=== PATIENT | male | born 1980 | race Caucasian/White ===

== ENCOUNTER 2019-07-17 07:04 | Outpatient (CLI) | payer OTHER, SELFPAY ==
--- NOTE | 2019-07-17 07:30 | CT_ITS ---
WS: [id number] CT CHEST, ABDOMEN AND PELVIS WITH AND WITHOUT CONTRAST. HISTORY: L RENAL MASS TECHNIQUE: Noncontrast CT abdomen and pelvis. Contiguous 5 mm axial imaging performed through the [address], abdomen and pelvis with IV contrast, oral contrast has been provided. Coronal and sagittal reform ats chest. Coronal and sagittal reformats through the abdomen and pelvis. All CT scans at [facility] use at least one of these dose optimization techniques: automated exposure control; mA an d/or kV adjustment per patient size (includes targeted exams where dose is matched to clinical indica tion); or iterative reconstruction. CONTRAST: Omnipaque 300; 95 mL IV. DLP: 3172.40 mGy-cm. COMPARISON: 05/07/[address]: Lungs are well aerated and clear. No pulmonary nodule or mass. Thoracic aorta and pulmonary artery size is normal. No pericardial or pleural effusion. Normal heart. No mediastinal or hilar oswaldo nopathy. There are several small axillary lymph nodes which are stable. Abdomen CT: Hepatic steatosis with no bile duct dilatation. Normal gallbladder, spleen, pancreas and adrenal glands. RIGHT kidney is normal size with no stones or obstruction. Cortical scar in the upper pole. Previously described LEFT renal mass has been removed. There is a scar and postoperative changes in t he mid to lower LEFT kidney. Small peripheral calcifications in the cortex at the scar site. No recur rent mass or abnormal enhancement. There is a large nonobstructing irregular calcification in the upp er pole of the LEFT kidney measuring 12 mm in maximum diameter. LEFT renal vein is patent. No adjacen t adenopathy or fluid. No retroperitoneal lymph nodes of any concerns. No ascites. Pelvic CT: Well-distended urinary bladder. No adenopathy or free fluid in the pelvis. Visualized GI t ract is negative. No obstruction. The appendix is normal. No osteoblastic or osteolytic bone disease. Again noted is a calcific or osseous density posterior to the sternal manubrial junction. May be from prior trauma or congenital. No osteoblastic or osteolyti c bone disease. Mild RIGHT convex curvature of the thoracic spine. CT/CT chest abd pel wo/w con IMPRESSION: 1. Status post surgical removal solid mass LEFT kidney. Postoperative changes of scarring are now present. No recurrent mass identified. 2. Irregular 12 mm calcification upper pole LEFT kidney is nonobstructing. 3. No osteoblastic or osteolytic bone disease or adenopathy. 4. Mild hepatic steatosis.
[2019-07-17] MEDS: iohexol 300 mg/mL 50 mL Btl PO (07:44)
[2019-07-17 08:12] LABS: Alanine Aminotransferase 51 U/L (0-41); Albumin Level 4.5 g/dL (3.5-5.2); Alkaline Phosphatase 41 IU/L (40-130); Anion Gap 13.8 (5-19); Aspartate Amino Transferase 26 U/L (0-40); Blood Urea Nitrogen 10 mg/dL (6-20); Calcium 9.4 mg/dL (8.5-10.5); Carbon Dioxide 28 mmol/L (22-29); Chloride 102 mmol/L (98-107); Globulin 2.7 g/dL (1.3-4.6); Glomerular Filtration Rate 83.6 mL/min (90-130); Glucose 112 mg/dL (65-115); Potassium 4.8 mmol/L (3.5-5.1); Sodium 139 mmol/L (136-145); Total Bilirubin 0.7 mg/dL (0.15-1.2); Total Protein 7.2 g/dL (6.6-8.7)
[2019-07-17] MEDS: iohexol 300 mg/mL 100 mL Btl IV (08:28)
== END 2019-07-17 07:05 | disposition home or self-care (01) ==
LOC: CT 07:26
PROVIDERS: Visit Provider Urology
DX: C64.9 Malignant neoplasm of unspecified kidney, except renal pelvis (principal); N40.1 Benign prostatic hyperplasia with lower urinary tract symptoms; N20.0 Calculus of kidney; N28.89 Other specified disorders of kidney and ureter; K76.0 Fatty (change of) liver, not elsewhere classified
CPT/HCPCS: 36415; 71260; 74178; 80053; 81001; 87086

== ENCOUNTER 2019-07-28 08:20 | Emergency (ER) | payer OTHER, SELFPAY ==
--- NOTE | 2019-07-28 08:30 | XRR_ITS ---
PROCEDURE INFORMATION: Exam: XR Chest, 2 Views Exam date and time: 07/28/2019 9:21 AM Age: 39 years old Clinical indication: Pleuordynia; Pain with breathing. TECHNIQUE: Imaging protocol: XR of the chest Views: 2 views. COMPARISON: CR Chest 2 views* [id number] 06/19/2017 9:07 PM FINDINGS: Lungs: No focal peripheral lung consolidation, air bronchogram formation, or silhouette sign. Pleural space: No pleural effusion or pneumothorax. Heart/Mediastinum: The cardiac silhouette is not enlarged. The mediastinal contours are normal. Bones/joints: No acute osseous abnormality. Other findings: There is a left epicardial fat pad. XR/XR chest 2V* [id number] IMPRESSION: No pneumonia.
[2019-07-28 08:36] VITALS: BP 147/94; PULSE 85; RESP 18; TEMP 36.6; O2SAT 97; BMI 34.8
--- NOTE | 2019-07-28 08:57 | ED_ITS ---
Entered by Willow Lamb, acting as scribe for Fuad Prieto DO Jul 28, 2019 08:20 HPI - General Adult General: Chief complaint: General Medical Stated complaint: pain in loft side when breathes Time Seen by Provider: 07/28/19 08:57 Source: patient and family Mode of arrival: ambulatory Limitations: no limitations History of Present Illness: HPI narrative: 39 yo male presents with L flank and L abdomen pain. pt states this started just [employer]. pt was working when the pain started, pain radiates to lower back. pain described as a sharp pain. pt denies any other symptoms at this time. MD complaint: L back and abdomen pain Onset (ago): hour(s) (just [employer] of [employer]) Location: back and abdomen Radiation: non-radiation Severity: mild Quality: sharp Pain Consistency: constant Relieving factors: none Exacerbating factors: movement and other (deep breaths) Associated symptoms: Reports other (back pain); Deny chest pain, dyspnea, malaise or rash Treatments prior to arrival: none Review of Systems General: Reports: 10 or more systems reviewed and unremarkable except in HPI and below Const: Denies: fever, chills, body aches, change in appetite, fatigue or malaise ENMT: Denies: throat pain, ear pain, nasal discharge or nasal congestion Card: Denies: chest pain, edema, shortness of breath on exertion or shortness of breath when lying down Resp: Denies: shortness of breath, productive cough or non-productive cough GI: Reports: abdominal pain : Reports: flank pain (L side) Musc: Reports: back pain Skin/Breast: Denies: rash or itching PFS ED PFSH: Medical History (Updated 07/28/19 @ 11:52 by Fuad Prieto DO) BPH loc w urin obs/LUTS Renal cell cancer Staghorn renal calculus Surgical History (Updated 07/28/19 @ 09:06 by Willow Lamb) H/O facial fracture repair reconstruction of face due to trauma Family History (Updated 07/17/19 @ 10:28 by Sahara Marques LPN) Mother Diabetes Father Lung disease Sleep apnea Social History (Updated 07/17/19 @ 10:28 by Sahara Marques LPN) Smoking and tobacco status: former smoker Alcohol intake: current Alcohol intake frequency: holidays/special occasions only Marital status: Current occupational status: employed History of recent travel: No Physical Exam Const: COMMON NORMALS: no apparent distress GENERAL APPEARANCE: cooperative and comfortable ORIENTATION/CONSCIOUSNESS: Yes awake, Yes oriented to person, Yes oriented to place and Yes oriented to time HENMT: COMMON NORMALS: normocephalic, head/scalp atraumatic, hearing grossly normal bilaterally, external ears normal, EAC's normal, TM's normal bilaterally, nasal mucous membranes and turbinates normal, moist oral mucous membranes and oropharynx normal HEAD & SCALP: normocephalic and atraumatic NOSE: nasal mucous membranes and turbinates normal EXTERNAL EAR: Yes external ears normal EXTERNAL AUDITORY CANAL: EAC's normal TYMPANIC MEMBRANE: TM's normal bilaterally Eye: COMMON NORMALS: PERRL, EOMs intact bilaterally, conjunctivae normal and no scleral icterus CONJUNCTIVA: Yes conjunctivae normal PUPIL: Yes PERRL Neck/C-Spine: COMMON NORMALS: full ROM, no lymphadenopathy, supple and no JVD Lymph: LYMPHATIC: no lymphadenopathy noted and no lymphedema noted Resp: COMMON NORMALS: normal respiratory effort, no retractions, no use of accessory muscles and clear to auscultation bilaterally AUSCULTATION: clear to auscultation bilaterally Cardio: COMMON NORMALS: no JVD, regular rate, regular rhythm and no murmurs RATE: regular rate RHYTHM: regular rhythm GI: COMMON NORMALS: soft to palpation and no hepatosplenomegaly AUSCULTATION: Yes normoactive bowel sounds PALPATION: Yes soft, No tender, No guarding and Yes no hepatosplenomegaly Back/Pelvis: OTHER: Pain is easily reproducible with light palpation along the lateral aspect of the lower ribs on the left. No percussion is even needed given there is other findings I think this is all musculoskeletal we will treat the patient with anti-inflammatories and pain medications give him 2 days off work follow-up with his primary care doctor if persists or worsens Extremity: COMMON NORMALS: normal to inspection, normal capillary refill, no clubbing, cyanosis or edema, no calf tenderness and no pedal edema Neuro: SENSORIUM/ORIENTATION: Yes oriented to person, Yes oriented to place and Yes oriented to time Skin: COMMON NORMALS: no rashes or lesions noted GENERAL SKIN EXAM: no rashes or lesions noted Course Vital Signs: Vital signs: Vital Signs Temperature 97.8 F 07/28/19 08:36 Pulse Rate 75 07/28/19 12:07 Respiratory Rate 14 07/28/19 12:07 Blood Pressure 145/85 07/28/19 12:07 Pulse Oximetry 99 07/28/19 12:07 [facility] - General Adult Lab Data: Labs: Lab Results 07/28/19 07/28/19 07/28/19 Range/Units 09:02 09:04 09:04 WBC 5.8 (4.0-10.0) 10^3/ uL RBC 4.98 (4.1-5.3) 10^6/u L Hgb 14.7 (11.7-16.6) g/dL Hct 45.5 (42.0-52.0) % MCV 91.4 (80-94) fL MCH 29.5 (28.0-34.0) pg MCHC 32.3 (30.0-36.0) g/dL RDW 12.3 (12.1-15.1) % Plt Count 394 (130-400) 10^3/c mm MPV 9.9 (7.4-10.4) fL Neut % (Auto) 50.7 % Lymph % (Auto) 34.1 % [place] % (Auto) 9.9 % Eos % (Auto) 4.1 % Baso % (Auto) 0.9 % Neut # (Auto) 3.0 (1.8-7.7) 10^3/u L Lymph # (Auto) 2.0 (0.8-4.8) 10^3/u L [place] # (Auto) 0.6 (0.2-0.9) 10^3/u L Eos # (Auto) 0.2 (0.0-0.8) 10^3/u L Baso # (Auto) 0.1 (0.0-0.1) 10^3/u L Nucleated RBC % (a uto) 0 % Nucleated RBCs # 0.0 /100WBC D-Dimer <= 0.27 (0-0.59) ug/mIFE U Sodium (136-145) mmol/L Potassium (3.5-5.1) mmol/L Chloride (98-107) mmol/L Carbon Dioxide (22-29) mmol/L Anion Gap (5-19) BUN (6-20) mg/dL Creatinine (0.7-1.2) mg/dL GFR Calculation (90-130) mL/min Glucose (65-115) mg/dL Calcium (8.5-10.5) mg/dL Total Bilirubin (0.15-1.2) mg/dL AST (0-40) U/L ALT (0-41) U/L Alkaline Phosphata se (40-130) IU/L Total Protein (6.6-8.7) g/dL Albumin (3.5-5.2) g/dL Globulin (1.3-4.6) g/dL Lipase (13-60) U/L Urine Color Yellow (Yellow) Urine Appearance Clear (CLEAR) Urine pH 5.0 (5-7) Ur Specific Gravit y 1.025 (1.005-1.030) Urine Protein Neg (Negative) Urine Glucose (UA) 2+ (Normal) Urine Ketones Negative (Negative) Urine Blood Neg (Negative) Urine Nitrate Negative (Negative) Urine Bilirubin Neg (NEGATIVE) Urine Urobilinogen Norm (Negative) mg/dL Ur Leukocyte Amanda ase Negative (Negative) 07/28/19 07/28/19 Range/Units 09:04 09:04 WBC (4.0-10.0) 10^3/ uL RBC (4.1-5.3) 10^6/u L Hgb (11.7-16.6) g/dL Hct (42.0-52.0) % MCV (80-94) fL MCH (28.0-34.0) pg MCHC (30.0-36.0) g/dL RDW (12.1-15.1) % Plt Count (130-400) 10^3/c mm MPV (7.4-10.4) fL Neut % (Auto) % Lymph % (Auto) % [place] % (Auto) % Eos % (Auto) % Baso % (Auto) % Neut # (Auto) (1.8-7.7) 10^3/u L Lymph # (Auto) (0.8-4.8) 10^3/u L [place] # (Auto) (0.2-0.9) 10^3/u L Eos # (Auto) (0.0-0.8) 10^3/u L Baso # (Auto) (0.0-0.1) 10^3/u L Nucleated RBC % (a uto) % Nucleated RBCs # /100WBC D-Dimer (0-0.59) ug/mIFE U Sodium 141 (136-145) mmol/L Potassium 4.3 (3.5-5.1) mmol/L Chloride 102 (98-107) mmol/L Carbon Dioxide 27 (22-29) mmol/L Anion Gap 16.3 (5-19) BUN 16 (6-20) mg/dL Creatinine 0.9 (0.7-1.2) mg/dL GFR Calculation 94.4 (90-130) mL/min Glucose 113 (65-115) mg/dL Calcium 9.6 (8.5-10.5) mg/dL Total Bilirubin 0.7 (0.15-1.2) mg/dL AST 24 (0-40) U/L ALT 64 H (0-41) U/L Alkaline Phosphata se 48 (40-130) IU/L Total Protein 7.4 (6.6-8.7) g/dL Albumin 4.6 (3.5-5.2) g/dL Globulin 2.8 (1.3-4.6) g/dL Lipase 23 (13-60) U/L Urine Color (Yellow) Urine Appearance (CLEAR) Urine pH (5-7) Ur Specific Gravit y (1.005-1.030) Urine Protein (Negative) Urine Glucose (UA) (Normal) Urine Ketones (Negative) Urine Blood (Negative) Urine Nitrate (Negative) Urine Bilirubin (NEGATIVE) Urine Urobilinogen (Negative) mg/dL Ur Leukocyte Amanda ase (Negative) Imaging Data^: CT Abd/Pel: Radiologist's impression: [address] [address] [address] Scan Report Signed Patient: Tomer Daniels #: [id number] : 1980Acct#:[id number] Age/Sex: 39 / MADM Date: 07/28/19 Loc: ERRoom/Bed: Attending Dr: Ordering Provider/Ordering MD: Fuad Prieto DO Date of Service: 07/28/19 Procedure(s): CT abdomen pelvis w con* [id number] Accession Number(s): [id number] Report Number: [id number] PROCEDURE INFORMATION: Exam: CT Abdomen And Pelvis With Contrast Exam date and time: 07/28/2019 10:17 AM Age: 39 years old Clinical indication: Abdominal pain; Localized; Prior surgery; Patient HX: Sudden onset of left abd/flank pain this a. M. HX of left renal mass surgically removed. ; Additional info: Abd pain TECHNIQUE: Imaging protocol: Computed tomography of the abdomen and pelvis with intravenous contrast. Total DLP: 1579.56 mGy-cm Radiation optimization: All CT scans at this facility use at least one of these dose optimization techniques: automated exposure control; mA and/or kV adjustment per patient size (includes targeted exams where dose is matched to clinical indication); or iterative reconstruction. Contrast material: OMNI 300; Contrast volume: 95 ml; Contrast route: 20G; COMPARISON: CT chest abd pel wo/w con 07/17/2019 8:41 AM FINDINGS: Lungs: No acute basilar lung consolidation. Liver: There is fatty change involving the liver parenchyma. Gallbladder and bile ducts: No calcified gallstones, gallbladder wall thickening, or pericholecystic inflammation. No biliary ductal dilation. Pancreas: No pancreatic mass. No peripancreatic inflammation. No pancreatic ductal dilation. Spleen: The spleen is homogeneous and is not enlarged. Adrenals: No adrenal mass. Kidneys and ureters: Prior partial left nephrectomy. Postsurgical changes in the perirenal space. No hemorrhage. There is nonobstructing calculus in the superior pole collecting system of the left kidney. No hydronephrosis or hydroureter on either side. No ureteral calculus. Stomach and bowel: No bowel obstruction, colitis or diverticulitis. Appendix: No evidence of appendicitis. Intraperitoneal space: No ascites or pneumoperitoneum. Vasculature: No abdominal aortic aneurysm. No iliac or common femoral artery aneurysm. The mesenteric arteries are patent. The mesenteric, portal, and hepatic veins are patent. Lymph nodes: No pathologically enlarged lymph nodes. Bladder: No urinary bladder calculus or wall thickening. Reproductive: Unremarkable as visualized. Bones/joints: No acute osseous abnormality. Soft tissues: Unremarkable. CT/CT abdomen pelvis w con* [id number] IMPRESSION: Left nephrolithiasis without urinary tract obstruction. Radiation Dose CTDIVOL = (mGy): DLP = 1579.56 (mGy-cm) Dictated By:Deon Rodney Signed By:Donnie Rodney Date/Time:07/28/19 1121 CXR: Radiologist's impression: [facility] [address] [place] [address] XRay Report Signed Patient: Tomer Daniels #: [id number] : 1980Acct#:[id number] Age/Sex: 39 / MADM Date: 07/28/19 Loc: ERRoom/Bed: Attending Dr: Ordering Provider/Ordering MD: Tomer Sloan NP Date of Service: 07/28/19 Procedure(s): XR chest 2V* [id number] Accession Number(s): [id number] Report Number: [id number] PROCEDURE INFORMATION: Exam: XR Chest, 2 Views Exam date and time: 07/28/2019 9:21 AM Age: 39 years old Clinical indication: Pleuordynia; Pain with breathing. TECHNIQUE: Imaging protocol: XR of the chest Views: 2 views. COMPARISON: CR Chest 2 views* [id number] 06/19/2017 9:07 PM FINDINGS: Lungs: No focal peripheral lung consolidation, air bronchogram formation, or silhouette sign. Pleural space: No pleural effusion or pneumothorax. Heart/Mediastinum: The cardiac silhouette is not enlarged. The mediastinal contours are normal. Bones/joints: No acute osseous abnormality. Other findings: There is a left epicardial fat pad. XR/XR chest 2V* [id number] IMPRESSION: No pneumonia. Dictated By:Deon Rodney Signed By:Donnie Rodney Date/Time:07/28/19 1018 Discharge Plan Discharge Patient Disposition: Home, Self-Care Clinical Impression: Strain of thoracic back region Condition: Stable Prescriptions: [place] 5-325 mg tablet 1 tab PO Q6H PRN (Reason: pain) Qty: 20 RF: 0 cyclobenzaprine 10 mg tablet 10 mg PO TID PRN (Reason: muscle spasm) Qty: 20 RF: 0 No Action tamsulosin 0.4 mg capsule 0.4 mg PO DAILY RF: 0 Discharge Orders: Discharge Order (Routine); Ordered 07/28/19 Ordered By: Fuad Prieto Referrals: Michael Suggs NP [Primary Care Provider] - Discharge Diet: Usual diet Discharge Activity: Increase activity as tolerated Activity Restrictions/Additional Instructions: Return if you have worsening problems Stand Alone Forms: Work/School Release Discharge Date/Time: 07/28/19 12:08 Coding Level of Care Code ED Manager Content for Chg Fwd The documentation recorded by the Adonis hinson Bridget Annette, accurately reflects the service I personally performed and the decisions made by , Fuad Prieto, Jul 28, 2019 08:20
[2019-07-28 09:11] LABS: Basophils # 0.1 10^3/uL (0.0-0.1); Basophils % 0.9 %; Eosinophils # 0.2 10^3/uL (0.0-0.8); Eosinophils % 4.1 %; Hematocrit 45.5 % (42.0-52.0); Hemoglobin 14.7 g/dL (11.7-16.6); Lymphocytes % 34.1 %; Mean Corpuscular HGB Conc 32.3 g/dL (30.0-36.0); Mean Corpuscular Hemoglobin 29.5 pg (28.0-34.0); Mean Corpuscular Volume 91.4 fL (80-94); Mean Platelet Volume 9.9 fL (7.4-10.4); Monocytes # 0.6 10^3/uL (0.2-0.9); Monocytes % 9.9 %; Neutrophils % 50.7 %; Nucleated Red Blood Cells % 0 %; Platelet Count 394 10^3/cmm (130-400); Red Blood Count 4.98 10^6/uL (4.1-5.3); Red Cell Distribution Width 12.3 % (12.1-15.1); White Blood Count 5.8 10^3/uL (4.0-10.0)
--- NOTE | 2019-07-28 09:15 | PC.NURSE ---
Patient to x-ray via wheelchair
[2019-07-28 09:21] LABS: Add Urine Microscopic? NO
[2019-07-28 09:25] LABS: D Dimer <= 0.27 ug/mIFEU (0-0.59)
[2019-07-28 09:33] LABS: Urine Appearance Clear (CLEAR); Urine Color Yellow (Yellow)
[2019-07-28 09:34] LABS: Bilirubin Urine Neg (NEGATIVE); Blood Urine Neg (Negative); Glucose Urine UA 2+ (Normal); Ketones Urine Negative (Negative); Leukocyte Esterase Urine Negative (Negative); Nitrate Urine Negative (Negative); Protein Urine Neg (Negative); Specific Gravity, Urine 1.025 (1.005-1.030); Urobilinogen Urine Norm (Negative)
[2019-07-28 09:34] LABS: Alanine Aminotransferase 64 U/L (0-41); Albumin Level 4.6 g/dL (3.5-5.2); Alkaline Phosphatase 48 IU/L (40-130); Anion Gap 16.3 (5-19); Aspartate Amino Transferase 24 U/L (0-40); Blood Urea Nitrogen 16 mg/dL (6-20); Calcium 9.6 mg/dL (8.5-10.5); Carbon Dioxide 27 mmol/L (22-29); Chloride 102 mmol/L (98-107); Globulin 2.8 g/dL (1.3-4.6); Glomerular Filtration Rate 94.4 mL/min (90-130); Glucose 113 mg/dL (65-115); Potassium 4.3 mmol/L (3.5-5.1); Sodium 141 mmol/L (136-145); Total Bilirubin 0.7 mg/dL (0.15-1.2); Total Protein 7.4 g/dL (6.6-8.7)
[2019-07-28 09:40] LABS: Lipase 23 U/L (13-60)
--- NOTE | 2019-07-28 10:14 | CTR_ITS ---
PROCEDURE INFORMATION: Exam: CT Abdomen And Pelvis With Contrast Exam date and time: 07/28/2019 10:17 AM Age: 39 years old Clinical indication: Abdominal pain; Localized; Prior surgery; Patient HX: Sudden onset of left abd/flank pain this a. M. HX of left renal mass surgically removed. ; Additional info: Abd pain TECHNIQUE: Imaging protocol: Computed tomography of the abdomen and pelvis with intravenous contrast. Total DLP: 1579.56 mGy-cm Radiation optimization: All CT scans at this facility use at least one of these dose optimization techniques: automated exposure control; mA and/or kV adjustment per patient size (includes targeted exams where dose is matched to clinical indication); or iterative reconstruction. Contrast material: OMNI 300; Contrast volume: 95 ml; Contrast route: 20G; COMPARISON: CT chest abd pel wo/w con 07/17/2019 8:41 AM FINDINGS: Lungs: No acute basilar lung consolidation. Liver: There is fatty change involving the liver parenchyma. Gallbladder and bile ducts: No calcified gallstones, gallbladder wall thickening, or pericholecystic inflammation. No biliary ductal dilation. Pancreas: No pancreatic mass. No peripancreatic inflammation. No pancreatic ductal dilation. Spleen: The spleen is homogeneous and is not enlarged. Adrenals: No adrenal mass. Kidneys and ureters: Prior partial left nephrectomy. Postsurgical changes in the perirenal space. No hemorrhage. There is nonobstructing calculus in the superior pole collecting system of the left kidney. No hydronephrosis or hydroureter on either side. No ureteral calculus. Stomach and bowel: No bowel obstruction, colitis or diverticulitis. Appendix: No evidence of appendicitis. Intraperitoneal space: No ascites or pneumoperitoneum. Vasculature: No abdominal aortic aneurysm. No iliac or common femoral artery aneurysm. The mesenteric arteries are patent. The mesenteric, portal, and hepatic veins are patent. Lymph nodes: No pathologically enlarged lymph nodes. Bladder: No urinary bladder calculus or wall thickening. Reproductive: Unremarkable as visualized. Bones/joints: No acute osseous abnormality. Soft tissues: Unremarkable. CT/CT abdomen pelvis w con* [id number] IMPRESSION: Left nephrolithiasis without urinary tract obstruction. Radiation Dose CTDIVOL = (mGy): DLP = 1579.56 (mGy-cm)
--- NOTE | 2019-07-28 11:00 | PC.NURSE ---
Patient to CT via stretcher
[2019-07-28] MEDS: iohexol 300 mg/mL 100 mL Btl IV (11:03)
--- NOTE | 2019-07-28 11:07 | PC.NURSE ---
Returned to room from CT
[2019-07-28 11:39] VITALS: BP 143/107; PULSE 70; O2SAT 100
[2019-07-28 12:07] VITALS: BP 145/85; PULSE 75; RESP 14; O2SAT 99
== END 2019-07-28 12:08 | disposition home or self-care (01) ==
PROVIDERS: Nurse Practitioner Family; Emergency Provider Family Medicine; PCP Nurse Practitioner Family
DX: S29.012A Strain of muscle and tendon of back wall of thorax, initial encounter (principal); Z87.891 Personal history of nicotine dependence; X58.XXXA Exposure to other specified factors, initial encounter
CPT/HCPCS: 36415; 71046; 74177; 80053; 81003; 83690; 85025; 85378; 99281; 99283; A9270; Q9967

== ENCOUNTER 2019-08-04 04:08 | Emergency (ER) | payer OTHER, SELFPAY ==
[2019-08-04 04:22] VITALS: BP 124/97; PULSE 82; RESP 18; TEMP 36.6; O2SAT 97; BMI 34.8
[2019-08-04 04:46] LABS: Rapid Strep A Test Negative (Negative)
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
--- NOTE | 2019-08-04 05:10 | CTR_ITS ---
PROCEDURE INFORMATION: Exam: CT Neck With Contrast Exam date and time: 08/04/2019 5:42 AM Age: 39 years old Clinical indication: Throat pain; Prior surgery; Surgery type: Facial reconstruction; Patient HX: Severe sore throat with hoarseness starting yesterday TECHNIQUE: Imaging protocol: Computed tomography images of the neck with intravenous contrast. Total DLP: 789.09 mGy-cm Radiation optimization: All CT scans at this facility use at least one of these dose optimization techniques: automated exposure control; mA and/or kV adjustment per patient size (includes targeted exams where dose is matched to clinical indication); or iterative reconstruction. Contrast material: OMNI 300; Contrast volume: 95 ml; Contrast route: 20G; COMPARISON: No relevant prior studies available. FINDINGS: Brain: The supervisory cbp officer space is normal. Visualized portions of the brain and orbits are normal. Nasopharynx: fossa of Rosenmuller is normal. Oropharynx: parapharyngeal space normal. Tonsillar tissues appear grossly normal. Hypopharynx: Piriform sinus is unremarkable. Larynx: the epiglottis, preepiglottic fat and the aryepiglottic folds are normal. The true cords appear normal. Thickening of the pharyngeal mucosal space on the right with mild soft tissue prominence in the right vallecula and thickening of the right aryepiglottic fold. Narrowing of the laryngeal vestibule. Please correlate. Retropharyngeal space: Unremarkable. Submandibular/Parotid glands: submental and submandibular regions are normal. the carotid and parotid spaces are normal. Thyroid: the thyroid gland, the thoracic inlet, the posterior triangles are normal. Lymph nodes: Numerous nonspecific lymph nodes. Trachea: Visualized trachea is unremarkable. Lungs: The lung apices are normal. Bones/joints: No acute osseous abnormality. Prior surgical fixation of the mandible body of the mandible on the right in the ramus of the mandible on the left. Space Prior surgical fixation of the right and left maxilla. Soft tissues: Unremarkable. No significant soft tissue swelling. Other findings: precervical space is normal. CT/CT neck w con* [id number] IMPRESSION: 1. Prior surgical fixation of the mandible body of the mandible on the right in the ramus of the mandible on the left. Space Prior surgical fixation of the right and left maxilla. 2. Tonsillar tissues appear grossly normal. 3. Thickening of the pharyngeal mucosal space on the right with mild soft tissue prominence in the right vallecula and thickening of the right aryepiglottic fold. Narrowing of the laryngeal vestibule. Please correlate. Consider endoscopy if indicated. Radiation Dose CTDIVOL = (mGy): DLP = 789.09 (mGy-cm)
[2019-08-04] MEDS: cetacaine Spray 5 gm Can 1 SPRAY TOPICAL (05:26)
[2019-08-04 05:36] VITALS: RESP 14; O2SAT 95
[2019-08-04] MEDS: morphine 4 mg/mL SDV 1 mL IVP (05:36)
[2019-08-04] MEDS: ketorolac 30 mg/mL INJ IVP (05:36)
[2019-08-04] MEDS: ondansetron 2 mg/ML SDV 2 mL 4 MG IVP ×2 (05:37→06:16)
[2019-08-04 05:41] VITALS: BP 139/106; PULSE 91; RESP 14; O2SAT 96
[2019-08-04] MEDS: iohexol 300 mg/mL 100 mL Btl IV (05:43)
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
[2019-08-04 05:56] LABS: Basophils # 0.1 10^3/uL (0.0-0.1); Basophils % 0.7 %; Eosinophils # 0.3 10^3/uL (0.0-0.8); Hematocrit 46.8 % (42.0-52.0); Lymphocytes % 24.6 %; Mean Corpuscular HGB Conc 32.1 g/dL (30.0-36.0); Mean Corpuscular Hemoglobin 30.4 pg (28.0-34.0); Mean Corpuscular Volume 94.9 fL (80-94); Mean Platelet Volume 10.3 fL (7.4-10.4); Monocytes # 0.9 10^3/uL (0.2-0.9); Monocytes % 10.3 %; Nucleated Red Blood Cells % 0 %; Platelet Count 370 10^3/cmm (130-400); Red Blood Count 4.93 10^6/uL (4.1-5.3); Red Cell Distribution Width 12.3 % (12.1-15.1); White Blood Count 8.3 10^3/uL (4.0-10.0)
[2019-08-04 06:18] VITALS: BP 135/95; PULSE 86; RESP 14; O2SAT 98
--- NOTE | 2019-08-04 06:19 | PC.NURSE ---
patient to CT
[2019-08-04 06:27] LABS: Alanine Aminotransferase 64 U/L (0-41); Albumin Level 4.6 g/dL (3.5-5.2); Alkaline Phosphatase 53 IU/L (40-130); Aspartate Amino Transferase 34 U/L (0-40); Blood Urea Nitrogen 15 mg/dL (6-20); C Reactive Protein 11.7 mg/L (0.0-4.9); Calcium 9.5 mg/dL (8.5-10.5); Carbon Dioxide 27 mmol/L (22-29); Chloride 100 mmol/L (98-107); Globulin 2.9 g/dL (1.3-4.6); Glomerular Filtration Rate 94.4 mL/min (90-130); Glucose 114 mg/dL (65-115); Sodium 139 mmol/L (136-145); Total Bilirubin 1.2 mg/dL (0.15-1.2); Total Protein 7.5 g/dL (6.6-8.7)
[2019-08-04] MEDS: clindamycin 900 MG/50 ML PREMIX 100 MG IV (08:48)
--- NOTE | 2019-08-04 08:56 | DCPLANNER ---
Addendum entered by Brenda Skaggs 08/04/19 10:06: Patient has a follow up appointment scheduled for Monday, August 05, 2019 at 2:[address] Owens. Original Note: production line manager was asked to schedule a follow up appointment for patient with Dr. Owens, ENT. production line manager called the ENT clinic, spoke with Nicolas, gave clinic patients information. production line manager was told that patients information will be printed and reviewed. Clinic will call dependency case manager and patient with appointment information.
[2019-08-04 10:36] VITALS: BP 135/78; PULSE 81; RESP 17; O2SAT 96
--- NOTE | 2019-08-12 14:54 | DCPLANNER ---
Patient did attend appointment scheduled for 08.05.19 with ENT.
== END 2019-08-04 10:38 | disposition home or self-care (01) ==
PROVIDERS: Emergency Medicine; Emergency Provider Emergency Medicine; PCP Nurse Practitioner Family
DX: J02.9 Acute pharyngitis, unspecified (principal); R09.82 Postnasal drip; R49.0 Dysphonia; Z87.891 Personal history of nicotine dependence
CPT/HCPCS: 70491; 80053; 85025; 86140; 87081; 87880; 96365; 96375; 96376; 99282; 99284; J1885; J2270; J2405; J2930; J3490; Q9967

== ENCOUNTER → 2019-08-05 14:45 | Outpatient (BNVA) | payer OTHER, SELFPAY | PROVIDERS: PCP Nurse Practitioner Family; Visit Provider Otolaryngology | DX: R49.0 Dysphonia (principal); J34.2 Deviated nasal septum; R93.89 Abnormal findings on diagnostic imaging of other specified body structures | CPT/HCPCS: 31575; 99214 ==

== ENCOUNTER 2020-01-05 06:51 | Emergency (ER) | payer SELFPAY ==
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
[2020-01-05 07:11] VITALS: BP 178/116; PULSE 92; RESP 16; TEMP 36.9; O2SAT 98; BMI 33.5
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
[2020-01-05 07:20] VITALS: O2SAT 98
[2020-01-05] MEDS: ketorolac 60 mg/2 mL INJ IM (07:37)
--- NOTE | 2020-01-05 07:43 | PC.NURSE ---
pt to CT by stretcher with tech
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
[2020-01-05 08:33] VITALS: BP 175/117; PULSE 85; RESP 18; O2SAT 97
== END 2020-01-05 08:26 | disposition home or self-care (01) ==
PROVIDERS: Emergency Provider Physician Assistant; PCP Nurse Practitioner Family
DX: M54.6 Pain in thoracic spine (principal); M25.512 Pain in left shoulder; Z85.528 Personal history of other malignant neoplasm of kidney; Z87.891 Personal history of nicotine dependence; V89.2XXA Person injured in unspecified motor-vehicle accident, traffic, initial encounter
CPT/HCPCS: 12345; 72128; 72131; 73030; 73502; 73562; 96372; 99281; 99283; J1885

== ENCOUNTER 2020-01-23 07:59 | Outpatient (CLI) | payer OTHER, SELFPAY ==
--- NOTE | 2020-01-23 08:08 | MR_ITS ---
WS: [id number] MRI LEFT SHOULDER HISTORY: PAIN IN LEFT SHOULDER COMPARISON: 01/05/2020 TECHNIQUE: Multiplanar sequences of the shoulder joint are submitted. Small amount of increased signal along the AC joint. There is a small amount of increased signal in t he distal clavicle. Loss of the normal cortex with subchondral cystic changes is probably degenerativ e. No significant subacromial or subdeltoid bursal fluid. No os acromion. Humeral head is high riding from the glenoid. There are significant degenerative changes at the gleno humeral joint. There is a large osteophyte extending inferiorly from the medial humeral head by 2.0 c m and transversely by 0.6 cm extending into the posterior/inferior joint space. There is loss of the cartilage over the humeral head and glenoid. Increased T2 signal in the medial humeral head and throu ghout the glenoid. There are subchondral cystic changes and the entire labrum has increased signal co nsistent with prior tears. No rotator cuff tear is identified. There is a very small of increased signal in the distal supraspin atus tendon without thickening. A tiny insertion site tear may be present resulting in the fluid exte nding along the distal tendon. There is no retraction or muscle atrophy or edema. Biceps tendon is in normal position. MR/MR shoulder LT wo con* [id number] IMPRESSION: 1. Advanced degenerative changes at the glenohumeral joint. There is marrow ed brenda in the glenoid and the humeral head. Loss of cartilage with cystic changes and marrow edema. I suspect some of the marrow edema in the humeral head is re lated to the recent trauma but no definite fracture identified. Developing oste onecrosis is suspected. 2. Very large osteophyte measuring 2.0 x 0.6 cm extends inferior from the medi al humeral head into the joint. 3. Mild AC joint arthritis. 4. Diffusely abnormal labrum. 5. No definite rotator cuff tear. Small amount of increased signal in the dist al supraspinatus tendon by no tear is identified. Small insertion site tear of the supraspinatus may be present.
== END 2020-01-23 08:00 | disposition home or self-care (01) ==
LOC: RADSHAW 08:02
PROVIDERS: PCP Nurse Practitioner Family; Visit Provider Nurse Practitioner Family
DX: M25.512 Pain in left shoulder (principal); R60.0 Localized edema; M25.712 Osteophyte, left shoulder; M19.012 Primary osteoarthritis, left shoulder; Q74.0 Other congenital malformations of upper limb(s), including shoulder girdle
CPT/HCPCS: 73221

== ENCOUNTER 2020-02-04 09:18 | Outpatient (RCR) | payer OTHER, SELFPAY | END 2020-03-03 23:59 | disposition home or self-care (01) | LOC: SPT 09:18 | PROVIDERS: PCP Nurse Practitioner Family; Referring Provider Specialist; Visit Provider Specialist | DX: M19.012 Primary osteoarthritis, left shoulder (principal) | CPT/HCPCS: 97110; 97162; G0283 ==

== ENCOUNTER 2021-09-02 14:49 | Emergency (ER) | payer SELFPAY ==
[2021-09-02 14:59] VITALS: BP 156/80; PULSE 100; RESP 18; TEMP 36.9; O2SAT 96; BMI 30.7
[2021-09-02 15:11] VITALS: BP 156/80; PULSE 100; RESP 18; O2SAT 96
--- NOTE | 2021-09-02 15:25 | XR_ITS ---
WS: [id number] Exam: XR ankle RT min 3V* [id number] Date/Time of Exam: 09/02/2021 3:29 PM Reason For Exam: trauma/pain There is soft tissue swelling about the ankle. An osseous fragment is noted along the lower margin th e medial malleolus. A recent fracture is not excluded. No other sign of fracture. The ankle mortise i s intact. XR/XR ankle RT min 3V* [id number] IMPRESSION: 1. Osseous fragments seen along the lower margin of the medial malleolus that m ay represent a fracture. Age is indeterminate but this could be recent. No othe r sign of fracture. 2. Soft tissue swelling about the ankle.
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
--- NOTE | 2021-09-05 10:12 | DCPLANNER ---
Addendum entered by Brenda Skaggs 09/06/21 07:57: Patient has a follow up appointment scheduled for Monday, September 06, 2021 at 11:[address] Bob at ortho. Clinic will call patient with appointment information. Original Note: dude ranch manager had message to schedule a follow up appointment for patient with ortho. dude ranch manager sent patients information to the front staff at ortho thru the [employer] messaging system. Patients information will be printed and reviewed. Clinic will call patient with appointment information.
== END 2021-09-02 16:17 | disposition home or self-care (01) ==
PROVIDERS: Emergency Provider Physician Assistant; PCP Nurse Practitioner Family
DX: S82.51XA Displaced fracture of medial malleolus of right tibia, initial encounter for closed fracture (principal); V29.3XXA Motorcycle rider (driver) (passenger) injured in unspecified nontraffic accident, initial encounter
CPT/HCPCS: 29515; 73610; 99283; E0114

== ENCOUNTER → 2021-09-06 11:12 | Outpatient (BNVA) | payer SELFPAY | PROVIDERS: PCP Nurse Practitioner Family; Referring Provider Physician Assistant; Visit Provider Podiatrist Foot & Ankle Surgery | DX: S82.51XA Displaced fracture of medial malleolus of right tibia, initial encounter for closed fracture (principal); V29.9XXA Motorcycle rider (driver) (passenger) injured in unspecified traffic accident, initial encounter | CPT/HCPCS: 73610 ==

== ENCOUNTER 2021-09-06 14:38 | Outpatient (CLI) | payer SELFPAY | END 2021-09-06 14:39 | disposition home or self-care (01) | LOC: SPT 14:39 | PROVIDERS: PCP Nurse Practitioner Family; Visit Provider Podiatrist Foot & Ankle Surgery | DX: S82.51XD Displaced fracture of medial malleolus of right tibia, subsequent encounter for closed fracture with routine healing (principal); X58.XXXD Exposure to other specified factors, subsequent encounter | CPT/HCPCS: 97760; L1902 ==

== ENCOUNTER 2021-11-06 02:07 | Observation (INO) | payer SELFPAY ==
[2021-11-06] VITALS (14 sets, daily range): BP systolic 124–173; BP diastolic 80–110; PULSE 65–95; RESP 14–20; TEMP 36.6–37.1; O2SAT 93–98; BMI 32.6
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
[2021-11-06] MEDS: HYDROmorphone 1 mg/mL INJ 1 mL IM (03:38)
[2021-11-06] MEDS: ondansetron 2 mg/ML SDV 2 mL 4 MG IM (03:38)
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
[2021-11-06] MEDS: ondansetron 2 mg/ML SDV 2 mL 4 MG IVP (05:18)
[2021-11-06] MEDS: sodium chloride 0.9% 1,000 ML 125 ML IV ×3 (05:18→23:38)
[2021-11-06] MEDS: HYDROmorphone 1 mg/mL INJ 1 mL IVP ×3 (05:37→20:12)
[2021-11-06 05:42] LABS: Basophils # 0.1 10^3/uL (0.0-0.1); Basophils % 0.3 %; Eosinophils # 0.1 10^3/uL (0.0-0.8); Eosinophils % 0.2 %; Hematocrit 49.5 % (42.0-52.0); Hemoglobin 16.7 g/dL (11.7-16.6); Lymphocytes # 1.3 10^3/uL (0.8-4.8); Lymphocytes % 6.3 %; Mean Corpuscular HGB Conc 33.7 g/dL (30.0-36.0); Mean Corpuscular Hemoglobin 31.3 pg (28.0-34.0); Mean Corpuscular Volume 92.7 fl (80-94); Mean Platelet Volume 10.6 fL (7.4-10.4); Monocytes # 0.9 10^3/uL (0.2-0.9); Monocytes % 4.4 %; Neutrophils # 18.75 10^3/uL (1.8-7.7); Neutrophils % 88.1 %; Nucleated Red Blood Cells % 0 %; Platelet Count 378 10^3/cmm (130-400); Red Blood Count 5.34 10^6/uL (4.1-5.3); Red Cell Distribution Width 13.2 % (12.1-15.1); White Blood Count 21.3 10^3/uL (4.0-10.0)
[2021-11-06 05:52] LABS: Add Urine Culture? No; Add Urine Microscopic? YES; Bacteria Urine TRACE /hpf; Bilirubin Urine Neg (Negative); Blood Urine 2+ (Negative); Glucose Urine UA 1+ (Normal); Hyaline Casts Urine 0-4 /lpf; Ketones Urine Negative (Negative); Leukocyte Esterase Urine Negative (Negative); Mucus Urine 1+ /hpf; Nitrate Urine Negative (Negative); Protein Urine Neg (Negative); Squamous Epithelial Cell Urine 0-4 /hpf (0-5); Urine Appearance Clear (CLEAR); Urine Color Yellow (Yellow); Urobilinogen Urine 1 mg/dL (Negative); WBC Urine 0-4 /hpf (0-5); pH Urine 5 (5-7)
[2021-11-06 06:04] LABS: Alanine Aminotransferase 59 U/L (0-41); Albumin Level 5.2 g/dL (3.5-5.2); Alcohol Level 121 mg/dL (0-10); Alkaline Phosphatase 70 IU/L (40-130); Anion Gap 16.8 (5-19); Aspartate Amino Transferase 42 U/L (0-40); Blood Urea Nitrogen 12 mg/dL (6-20); Calcium 9.4 mg/dL (8.5-10.5); Carbon Dioxide 25 mmol/L (22-29); Chloride 101 mmol/L (98-107); Globulin 2.9 g/dL (1.3-4.6); Glomerular Filtration Rate 82.8 mL/min (90-130); Glucose 139 mg/dL (65-115); Osmolality Calculated 290 mOsm/kg (285-295); Potassium 3.8 mmol/L (3.5-5.1); Sodium 139 mmol/L (136-145); Total Bilirubin 0.4 mg/dL (0.15-1.2); Total Protein 8.1 g/dL (6.6-8.7)
[2021-11-06 06:22] LABS: Creatine Phosphokinase 502 U/L (39-308)
[2021-11-06] MEDS: oxyCODONE-APAP 5-325 mg Tablet 1 TAB PO ×3 (09:32→23:37)
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
[2021-11-06] MEDS: lidocaine 5% Patch 1 PATCH TOPICAL (20:13)
[2021-11-07] VITALS (10 sets, daily range): BP systolic 157–172; BP diastolic 84–95; PULSE 76–88; RESP 14–18; TEMP 36.4–37.1; O2SAT 92–98
[2021-11-07] MEDS: HYDROmorphone 1 mg/mL INJ 1 mL IVP ×2 (01:32→09:27)
[2021-11-07] MEDS: oxyCODONE-APAP 5-325 mg Tablet 1 TAB PO ×2 (05:11→12:52)
[2021-11-07 05:27] LABS: Basophils # 0.1 10^3/uL (0.0-0.1); Basophils % 0.4 %; Eosinophils # 0.2 10^3/uL (0.0-0.8); Eosinophils % 1.3 %; Hematocrit 44.8 % (42.0-52.0); Hemoglobin 14.7 g/dL (11.7-16.6); Lymphocytes # 1.8 10^3/uL (0.8-4.8); Lymphocytes % 13.5 %; Mean Corpuscular HGB Conc 32.8 g/dL (30.0-36.0); Mean Corpuscular Hemoglobin 31.1 pg (28.0-34.0); Mean Corpuscular Volume 94.7 fl (80-94); Mean Platelet Volume 10.5 fL (7.4-10.4); Monocytes # 1.7 10^3/uL (0.2-0.9); Monocytes % 12.5 %; Neutrophils # 9.66 10^3/uL (1.8-7.7); Nucleated Red Blood Cells % 0 %; Platelet Count 252 10^3/cmm (130-400); Red Blood Count 4.73 10^6/uL (4.1-5.3); Red Cell Distribution Width 13.2 % (12.1-15.1); White Blood Count 13.4 10^3/uL (4.0-10.0)
[2021-11-07 05:48] LABS: Anion Gap 13.6 (5-19); Blood Urea Nitrogen 13 mg/dL (6-20); Calcium 9.1 mg/dL (8.5-10.5); Carbon Dioxide 26 mmol/L (22-29); Chloride 99 mmol/L (98-107); Creatinine Clr Calc Pharmacy 152.1465; Glomerular Filtration Rate 107.1 mL/min (90-130); Glucose 135 mg/dL (65-115); Magnesium 1.8 mg/dL (1.7-2.3); Osmolality Calculated 280 mOsm/kg (285-295); Potassium 4.6 mmol/L (3.5-5.1); Sodium 134 mmol/L (136-145)
--- NOTE | 2021-11-07 09:48 | PC.CHAP ---
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 [] Patient/Family/Request visit [] Outpatient visit [] Follow-up visit [] Physician referral [] Code/Alert [x] Routine visit [] Staff referral [] Actively dying [] Patient sleeping [] Family support [] [] Out of room [] Palliative care [] [] Receiving care in room [] Pre-surgical visit [] Trauma [] Long length of stay [] ICU visit [] Other: Relational/Emotional Strength [x] Patient feels connected with others/family/visitors/staff [] Distress [] Loneliness/isolation [] Abandonment Spirituality of Patient [x] Person of Shaniqua [] Attends Gnosticism of their Shaniqua [x] Believes in Prayer [] Reads Bible or Yarsani materials [] There are Spiritual issues to be addressed Runner Out Interventions [x] Prayer []x Active listening [] Non-anxious presence [] Spiritual/emotional support [] Crisis/trauma care [] Spiritual counseling [] Bereavement support [] Provided bereavement packet [] Provided Bible/devotional materials [] Provided toy/stuffed animal, coloring book to patient or family member [] Provided Communion [] Anointing/Sharon [] Salvation [x] Completed spiritual assessment [] Other: Impact on Illness or Injury [] Angry [] Fearful [] Anxious [] Often cries [] Exhaustion [] Unable to work [] Unable to attend hindu [] Unable to walk/stand [] Unable to read [] Unable to drive [] Unable to eat/drink [] Unable to sleep [] Unable to be with family [] Patient intubated [] Other: Summary patient pinky pain Time spent with patient 10 min
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
[2021-11-07] MEDS: ketorolac 30 mg/mL INJ IVP (13:57)
--- NOTE | 2021-11-07 18:04 | PC.NURSE ---
Patient ambulated to the elevator and was attempting to leave. This nurse asked patient if he was wanting to leave. He states, Yes I am leaving. Asked patient to let me take his IV out before he laves the floor. Patient ambulated back to the nurses station and this nurse removed his IV and patient tolerated well. Patient and nurse Georgina discussing the leaving against medical advice paper work. Patient is not willing to sign the paper.
--- NOTE | 2021-11-07 18:06 | PC.NURSE ---
AT APPROX 1800 RN WAS GETTING PTS PAIN MEDS, PTS STATES HE IS LEAVING. PT ATTEMPTED TO LEAVE WITH HIS IV, PT WAS STOPPED BY RNS AND IV WAS REMOVED. PT REFUSED TO SIGN AMA PAPER. PT VERBALLY ACKNOWLEDGED RISKS OF LEAVING AND BENEFITS OF STAYING. DR. GERONIMO NOTIFIED AND AWARE.
== END 2021-11-07 18:00 | disposition left against medical advice (07) ==
LOC: ER 05:40 → MEDSURG 11-07 00:42
PROVIDERS: Admitting Provider Surgery; Emergency Provider Emergency Medicine; PCP Nurse Practitioner Family; Visit Provider Surgery
DX: S22.41XA Multiple fractures of ribs, right side, initial encounter for closed fracture (principal); V29.9XXA Motorcycle rider (driver) (passenger) injured in unspecified traffic accident, initial encounter; N40.1 Benign prostatic hyperplasia with lower urinary tract symptoms; N13.8 Other obstructive and reflux uropathy; F17.200 Nicotine dependence, unspecified, uncomplicated
CPT/HCPCS: 36415; 70450; 71045; 71250; 72125; 74176; 80048; 80053; 80307; 81001; 82550; 83735; 85025; 96372; 96374; 96375; 99285; G0378; J1170; J1885; J2405; J7030

== ENCOUNTER 2022-12-29 05:33 | Emergency (ER) | payer BC, SELFPAY ==
[2022-12-29 05:46] VITALS: BP 184/104; PULSE 83; RESP 17; TEMP 36.8; O2SAT 98; BMI 29.9
--- NOTE | 2022-12-29 05:48 | ECG_ITS ---
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 Measurements Intervals [place] Rate: 77 P: 69 MS: 170 QRS: 65 QRSD: 110 T: 57 QT: 355 QTc: 404 Interpretive Statements SINUS RHYTHM No previous ECG available for comparison Electronically Signed On 12-29-2022 18:37:33 CDT by Paris Rahman M.D. [id number]
--- NOTE | 2022-12-29 06:08 | XRR_ITS ---
PROCEDURE INFORMATION: Exam: XR Chest Exam date and time: 12/29/2022 6:18 AM Age: 42 years old Clinical indication: Pain; Right-sided; Additional info: Chest pain TECHNIQUE: Imaging protocol: Radiologic exam of the chest. Views: 1 view. COMPARISON: CT chest abdpel [id number] 11/06/2021 3:25 AM FINDINGS: Lungs: Unremarkable. No consolidation. Pleural spaces: Unremarkable. No pleural effusion. No pneumothorax. Heart/Mediastinum: Unremarkable. No cardiomegaly. Bones/joints: Unremarkable. XR/XR chest 1V portable [id number] IMPRESSION: No acute findings.
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
[2022-12-29 06:34] LABS: Basophils # 0.1 10^3/uL (0.0-0.1); Basophils % 1.1 %; Eosinophils # 0.4 10^3/uL (0.0-0.8); Hematocrit 41.2 % (42.0-52.0); Hemoglobin 13.3 g/dL (11.7-16.6); Lymphocytes # 2.2 10^3/uL (0.8-4.8); Lymphocytes % 29.8 %; Mean Corpuscular HGB Conc 32.3 g/dL (30.0-36.0); Mean Corpuscular Hemoglobin 30.8 pg (28.0-34.0); Mean Corpuscular Volume 95.4 fl (80-94); Mean Platelet Volume 10.5 fL (7.4-10.4); Monocytes # 0.7 10^3/uL (0.2-0.9); Monocytes % 9.2 %; Neutrophils # 4.08 10^3/uL (1.8-7.7); Neutrophils % 54.6 %; Nucleated Red Blood Cells % 0 %; Platelet Count 344 10^3/cmm (130-400); Red Blood Count 4.32 10^6/uL (4.1-5.3); Red Cell Distribution Width 13.2 % (12.1-15.1); White Blood Count 7.5 10^3/uL (4.0-10.0)
[2022-12-29] MEDS: aspirin 81 mg Chew Tablet 324 MG PO (06:45)
--- NOTE | 2022-12-29 06:46 | PC.NURSE ---
Pt. blood pressure went from 184/104 to 156/99. Blood pressure medication is being held by Dr. jenkins
[2022-12-29 07:04] LABS: Troponin(5th) Baseline 8 ng/L (0-15)
[2022-12-29 07:29] VITALS: BP 137/96; PULSE 64; RESP 16; O2SAT 97
--- NOTE | 2022-12-29 07:29 | PC.NURSE ---
PT PLACED ON CONTINUOS NIBP ,SPO2, AND CM
[2022-12-29 07:30] VITALS: BP 147/98; PULSE 64; RESP 18; O2SAT 96
[2022-12-29 07:32] LABS: Alanine Aminotransferase 31 U/L (0-41); Alkaline Phosphatase 47 U/L (40-130); Anion Gap 12.8 (5-19); Aspartate Amino Transferase 17 U/L (0-40); Blood Urea Nitrogen 14 mg/dL (6-20); Calcium 8.8 mg/dL (8.5-10.5); Carbon Dioxide 27 mmol/L (22-29); Chloride 104 mmol/L (98-107); Globulin 2.3 g/dL (1.3-4.6); Glomerular Filtration Rate 73.8 mL/min (90-130); Glucose 114 mg/dL (65-115); Lipase 32 U/L (13-60); Osmolality Calculated 291 mOsm/kg (285-295); Potassium 3.8 mmol/L (3.5-5.1); Sodium 140 mmol/L (136-145); Total Bilirubin 0.2 mg/dL (0.15-1.2); Total Protein 6.3 g/dL (6.6-8.7)
--- NOTE | 2022-12-29 08:13 | ECG_ITS ---
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 Measurements Intervals [place] Rate: 62 P: 71 NV: 169 QRS: 69 QRSD: 113 T: 65 QT: 383 QTc: 390 Interpretive Statements SINUS RHYTHM MODERATE INTRAVENTRICULAR CONDUCTION DELAY [110+ ms QRS DURATION] Compared to ECG 12/29/2022 05:48:36 Intraventricular conduction delay now present Electronically Signed On 12-29-2022 18:43:17 CDT by Paris Rahman M.D. [email or web address] [facility], [employer]/store/[id number]
[2022-12-29 08:59] LABS: Troponin 5 2HR 7.84 ng/L (0-15)
[2022-12-29 09:00] VITALS: BP 129/85; PULSE 56; RESP 16; O2SAT 97
[2022-12-29 09:16] VITALS: BP 130/80; PULSE 68; RESP 16; TEMP 36.6; O2SAT 98
[2022-12-29 09:19] LABS: Troponin 5 2HR Delta -0.16 ABS# (0-10)
--- NOTE | 2023-01-01 11:49 | DCPLANNER ---
Addendum entered by Brenda Skaggs 01/10/23 09:20: Patient had an outpatient stress test scheduled, patient did attend appointment Original Note: discovery manager had message to schedule an out patient stress test for patient. discovery manager called patient to confirm that patient wanted the stress test ordered and to confirm who patient sees for primary care. Spoke with patients , who stated that patient sees Michael Suggs at [facility], and that patient did want the test ordered. discovery manager faxed signed order to centralized scheduling, who will call patient with appointment information.
== END 2022-12-29 09:18 | disposition home or self-care (01) ==
PROVIDERS: Emergency Medicine; Emergency Provider Family Medicine; PCP Nurse Practitioner Family
DX: R07.89 Other chest pain (principal); I10 Essential (primary) hypertension; E03.9 Hypothyroidism, unspecified; F17.200 Nicotine dependence, unspecified, uncomplicated
CPT/HCPCS: 36415; 71045; 80053; 83690; 84484; 85025; 93005; 99285

== ENCOUNTER 2023-01-05 12:25 | Outpatient (CLI) | payer BC, SELFPAY ==
--- NOTE | 2023-01-05 | ECG_ITS ---
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 Interpretive Statements NAME OF STUDY: TREADMILL STRESS TEST INDICATION: Chest Pain PROCEDURE: At the baseline, the patient's blood pressure was 132/89 mm Hg with a heart rate of 95 bpm and oxygen saturation of 96%. The baseline electrocardiogram showed normal sinus rhythm with normal ST-Ts. ??? The patient exercised for 9 minutes on a [standard Jose protocol]. Patient attained a maximum heart rate of 154 beats per minute( 86 % of the maximum predicted heart rate) with a blood pressure at the peak exercise of 203/92 mm Hg and oxygen saturation of 90%. The EKG at the peak exercise revealed no significant ST-T wave changes. Patient did not have any chest pain or any significant cardiac arrhythmias with the exercise. ??? During the recovery phase, there were no new changes. Frequent isolated PVC's noted in recovery. ??? Blood pressure at the end of the recovery phase was 149/95 mm Hg with a heart rate of 108 beats per minute and oxygen saturayion of 95%. ??? CONCLUSION: 1. Normal EKG response to treadmill exercise. 2. No exercise-induced chest pain. Frequent isolated PVC's noted in recovery. 3. Excellent exercise tolerance, attained a maximum of 10.2 METs Electronically Signed On 01-17-2023 22:53:06 CDT by Astrid Moralez M.D. [email or web address]/[id number]
[2023-01-05 12:38] VITALS: BMI 29.8
[2023-01-05 15:10] VITALS: BP 149/95; PULSE 98
== END 2023-01-05 12:26 | disposition home or self-care (01) ==
LOC: CDL 12:25
PROVIDERS: PCP Nurse Practitioner Family; Visit Provider Family Medicine
DX: R07.9 Chest pain, unspecified (principal)
CPT/HCPCS: 93017

== ENCOUNTER → 2023-12-31 16:32 | Outpatient (BNVA) | payer OTHER, SELFPAY | PROVIDERS: PCP Nurse Practitioner Family; Visit Provider Emergency Medicine | DX: S92.515A Nondisplaced fracture of proximal phalanx of left lesser toe(s), initial encounter for closed fracture; W10.9XXA Fall (on) (from) unspecified stairs and steps, initial encounter | CPT/HCPCS: 73630 ==

== ENCOUNTER 2024-06-03 11:32 | Outpatient (CLI) | payer MEDICAID, SELFPAY ==
--- NOTE | 2024-06-03 11:49 | XR_ITS ---
WS: [id number] Left shoulder, 3 views, 06/03/2024 Clinical Data: LEFT SHOULDER PAIN Comparison: Left shoulder, 01/05/2020 Findings: No fractures or dislocations are seen. There is narrowing and sclerosis of the left glenohumeral join t. There is a large spur of the lesser tuberosity. The AC joint is normal. The adjacent left clavicle , left scapula and ribs are normal. The soft tissues are unremarkable. XR/XR shoulder LT min 2V* [id number] Impression: Moderate osteoarthritis of the left glenohumeral joint.
== END 2024-06-03 11:33 | disposition home or self-care (01) ==
PROVIDERS: Visit Provider Nurse Practitioner Family
DX: M19.012 Primary osteoarthritis, left shoulder (principal)
CPT/HCPCS: 73030

== ENCOUNTER 2024-06-16 16:50 | Outpatient (CLI) | payer MEDICAID, SELFPAY ==
--- NOTE | 2024-06-16 17:00 | XRR_ITS ---
PROCEDURE INFORMATION: Exam: XR Chest Exam date and time: 06/16/2024 5:08 PM Age: 44 years old Clinical indication: Cough TECHNIQUE: Imaging protocol: Radiologic exam of the chest. Views: 2 views. COMPARISON: CR XR chest 1V portable [id number] 12/29/2022 6:18 AM FINDINGS: Lungs: Unremarkable. No consolidation. Pleural spaces: Unremarkable. No pleural effusion. No pneumothorax. Heart/Mediastinum: Unremarkable. No cardiomegaly. Bones/joints: Unremarkable. XR/XR chest 2V* [id number] IMPRESSION: No acute findings.
== END 2024-06-16 16:51 | disposition home or self-care (01) ==
LOC: RAD 16:53
PROVIDERS: PCP Nurse Practitioner Family; Visit Provider Nurse Practitioner Family
DX: R05.8 Other specified cough (principal)
CPT/HCPCS: 71046

== ENCOUNTER → 2024-06-24 09:00 | Outpatient (BNVA) | payer BC, MEDICAID, SELFPAY | PROVIDERS: PCP Nurse Practitioner Family; Visit Provider Physician Assistant | DX: M19.112 Post-traumatic osteoarthritis, left shoulder (principal); M75.42 Impingement syndrome of left shoulder; M19.012 Primary osteoarthritis, left shoulder | CPT/HCPCS: 73030 ==

== ENCOUNTER 2024-06-25 13:26 | Emergency (ER) | payer OTHER, SELFPAY ==
[2024-06-25 13:43] VITALS: BP 126/86; PULSE 92; RESP 16; TEMP 36.8; O2SAT 97; BMI 35.2
--- NOTE | 2024-06-25 18:24 | XRR_ITS ---
PROCEDURE INFORMATION: Exam: XR Right Tibia and Fibula Exam date and time: 06/25/2024 6:26 PM Age: 44 years old Clinical indication: Other: Dog bite TECHNIQUE: Imaging protocol: Radiologic exam of the right tibia and fibula. Views: 2 views. COMPARISON: CR XR ankle RT min 3V* [id number] 09/06/2021 11:17 AM FINDINGS: Bones/joints: Normal mineralization and alignment. No evidence of acute fracture or dislocation. Soft tissues: The soft tissues are within normal limits. No subcutaneous gas identified. XR/XR tibia fibula RT 2V [id number] IMPRESSION: No acute pathology.
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
[2024-06-25] MEDS: doxycycline 100 mg Tablet PO (18:59)
[2024-06-25] MEDS: rabies vaccine 2.5 unit SDV IM (19:00)
[2024-06-25] MEDS: tetanus-dipt-pertussis 0.5 mL SDV IM (19:02)
[2024-06-25] MEDS: rabies IG 300 unit/mL SDV 1 mL 2220 UNIT IM (19:05)
[2024-06-25 19:12] VITALS: BP 134/93; PULSE 89; RESP 18; O2SAT 97
[2024-06-25 20:00] VITALS: BP 138/90; PULSE 88; O2SAT 96
== END 2024-06-25 20:01 | disposition home or self-care (01) ==
PROVIDERS: Emergency Provider Physician Assistant; PCP Nurse Practitioner Family
DX: S81.811A Laceration without foreign body, right lower leg, initial encounter (principal); W54.0XXA Bitten by dog, initial encounter; Z79.82 Long term (current) use of aspirin; Z72.0 Tobacco use; C64.9 Malignant neoplasm of unspecified kidney, except renal pelvis
CPT/HCPCS: 12002; 73590; 90375; 90471; 90675; 90715; 96372; 99283

== ENCOUNTER 2024-06-28 08:42 | Emergency (ER) | payer MEDICAID, SELFPAY ==
[2024-06-28 09:14] VITALS: BP 139/94; PULSE 83; RESP 17; TEMP 36.8; O2SAT 96; BMI 35.2
[2024-06-28] MEDS: rabies vaccine 2.5 unit SDV IM (09:47)
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
== END 2024-06-28 09:57 | disposition home or self-care (01) ==
PROVIDERS: Emergency Provider Family Medicine; PCP Nurse Practitioner Family
DX: Z23 Encounter for immunization (principal); Z29.14 Encounter for prophylactic rabies immune globulin; Z72.0 Tobacco use; Z79.82 Long term (current) use of aspirin
CPT/HCPCS: 90471; 90675; 99283

== ENCOUNTER 2024-07-02 07:07 | Oncology outpatient (recurring) (ONCR) | payer MEDICAID, SELFPAY ==
--- NOTE | 2024-07-02 07:15 | MR_ITS ---
WS: [id number] MRI LEFT SHOULDER HISTORY: left shoulder pain COMPARISON: 01/23/2020 MRI, radiograph 06/24/2024 TECHNIQUE: Multiplanar sequences of the shoulder joint are submitted. Moderate AC joint arthritis. Marked narrowing of the AC joint with narrowing and edema along the tracey cular surfaces. Hypertrophic soft tissue and osteophytosis. Mild downsloping of the acromion. No sign ificant bursal fluid. No os acromion. Normal position of the biceps tendon. Severe glenohumeral joint narrowing. High riding humeral head. Subchondral cystic changes with loss o f the normal cortical surface involving the glenoid and humeral head. There is a large osteophyte whi ch has been previously described from the medial inferior humeral head encroaching upon the glenohume ral joint and axillary pouch. Small intra-articular bodies in the axillary pouch associated with the larger osteophyte. No edema or atrophy in the rotator cuff muscles. No rotator cuff tendon tear is identified. Small adri unt of increased signal near the rotator cuff interval surrounding the biceps tendon. Diffuse abnorma l signal throughout the labrum. Posterior labrum appears avulsed. There is a large osteophyte now pre sent with loss of the normal surface of the glenoid. Diffuse increased signal throughout the anterior labrum. Superior and inferior labrum are also abnormal. No identifiable normal labrum. MR/MR shoulder LT wo con* [id number] IMPRESSION: 1. Progression of advanced degenerative changes at the glenohumeral joint sin e 2019. 2. Large osteophyte from the medial inferior humeral head extends into the axi llary pouch with a small adjacent intra-articular bodies. 3. No rotator cuff tear. 4. Moderate AC joint arthritis with subacromial impingement of the AC joint. 5. Severe glenohumeral joint narrowing with subchondral cystic changes. 6. Diffusely abnormal signal throughout the labrum. Posterior labrum appears a vulsed. No identifiable superior or inferior labrum.
[2024-07-02] MEDS: rabies vaccine 2.5 unit SDV IM (15:52)
== END 2024-07-04 23:59 | disposition home or self-care (01) ==
LOC: RAD 15:00 → ONCMED 15:51
PROVIDERS: PCP Nurse Practitioner Family; Visit Provider Physician Assistant
DX: Z53.9 Procedure and treatment not carried out, unspecified reason (principal); Z23 Encounter for immunization; Z20.3 Contact with and (suspected) exposure to rabies; M19.112 Post-traumatic osteoarthritis, left shoulder; T14.8XXA Other injury of unspecified body region, initial encounter; W54.0XXA Bitten by dog, initial encounter; R93.7 Abnormal findings on diagnostic imaging of other parts of musculoskeletal system
CPT/HCPCS: 73221; 90471; 90675

== ENCOUNTER 2024-07-09 14:57 | Oncology outpatient (recurring) (ONCR) | payer MEDICAID, SELFPAY ==
[2024-07-09] MEDS: rabies vaccine 2.5 unit SDV IM (15:48)
--- NOTE | 2024-07-09 16:13 | PC.NURSE ---
Pt received his final dose of Rabavert, rabies vaccine today. Injection was administered to right deltoid, a small amount of blood leaked out the injection site, which concerned the patient. It was explained to the patient that this can be normal and can happen anytime the body it pierced with a needle. Bleeding had stopped completely as soon as a band aid was applied.
== END 2024-08-01 23:59 | disposition home or self-care (01) ==
LOC: ONCMED 14:57
PROVIDERS: PCP Nurse Practitioner Family; Visit Provider Physician Assistant
DX: Z23 Encounter for immunization (principal); Z20.3 Contact with and (suspected) exposure to rabies; T14.8XXA Other injury of unspecified body region, initial encounter; W54.0XXA Bitten by dog, initial encounter
CPT/HCPCS: 90471; 90675

== ENCOUNTER → 2024-08-05 14:01 | Outpatient (BNVA) | payer MEDICAID, SELFPAY | PROVIDERS: PCP Nurse Practitioner Family; Visit Provider Student in an Organized Health Care Education/Training Program | DX: M75.42 Impingement syndrome of left shoulder (principal); M19.012 Primary osteoarthritis, left shoulder | CPT/HCPCS: 99213 ==

== ENCOUNTER 2025-01-06 13:20 | Outpatient (RCR) | payer SELFPAY | END 2025-02-01 23:59 | disposition home or self-care (01) | LOC: SPT 13:20 | PROVIDERS: Visit Provider Nurse Practitioner Family | DX: Z98.890 Other specified postprocedural states (principal) | CPT/HCPCS: 97110; 97150; 97161 ==

== ENCOUNTER 2025-02-02 05:00 | Outpatient (RCR) | payer SELFPAY | END 2025-02-25 08:56 | disposition home or self-care (01) | LOC: SPT 05:00 | PROVIDERS: Visit Provider Nurse Practitioner Family | DX: Z47.1 Aftercare following joint replacement surgery (principal); Z96.612 Presence of left artificial shoulder joint | CPT/HCPCS: 97110 ==